=== PATIENT | male | born 1945 | race Caucasian/White ===

== ENCOUNTER 2021-10-06 05:22 | Inpatient (IN) | payer MEDICARE, OTHER ==
[2021-10-06] MEDS ORDERED: Acetaminophen 500 MG TAB ONE (06:22)
[2021-10-06] MEDS ORDERED: hydrOXYzine 25 MG TAB ONE (06:22)
[2021-10-06 06:35] LABS: #Basophils 0.1 thou/uL (0.0-0.2); #Lymphocytes 1.3 thou/uL (1.20-3.40); #Monocytes 0.7 thou/uL (0.11-0.59); #Neutrophils 5.9 thou/uL (1.40-6.50); %Basophils 0.9 % (0.0-1.0); %Eosinophils 0.5 % (0.0-10.0); %Neutrophils 73.7 % (42.0-75.0); Hemoglobin 13.9 g/dL (14.0-18.0); Mean Corpuscular HGB CONC 33.4 g/dL (32.0-36.0); Mean Corpuscular Hemoglobin 32.4 pg (27.0-31.0); Mean Corpuscular Volume 96.8 fL (78.0-98.0); Mean Platelet Volume 6.7 fL (7.4-10.4); Platelet Count 270 thou/uL (130-400); RBC Distribution Width 11.1 % (11.5-14.5)
[2021-10-06 06:55] LABS: ALT (SGPT) 9 U/L (8-55); AST (SGOT) 16 U/L (5-34); Albumin 4.4 g/dL (3.4-4.8); Alkaline Phosphatase 63 U/L (40-110); Anion Gap 12 mmol/L (10-20); BUN (Urea Nitrogen) 11 mg/dL (8.4-25.7); Bilirubin, Total 0.9 mg/dL (0.2-1.2); Calc. Creatinine Clearance 0 mL/min (70-130); Calcium 9.4 mg/dL (7.8-10.44); Carbon Dioxide 24 mmol/L (23-31); Chloride 96 mmol/L (98-107); Globulin 2.4 g/dL (2.4-3.5); Glucose 93 mg/dL (83-110); Potassium 4.3 mmol/L (3.5-5.1); Protein, Total 6.8 g/dL (5.8-8.1); Sodium 128 mmol/L (136-145)
[2021-10-06 07:11] LABS: Bilirubin Negative (Negative); Blood, Urine Negative (Negative); Clarity Clear (Clear); Glucose, Urine (Dipstick) Normal (Negative); Ketone, Urine Negative (Negative); Leukocyte Negative Leu/uL (Negative); Nitrite Negative (Negative); Protein, Urine (Dipstick) Negative (Neg-Trace); Specific Gravity, Urine 1.013 (1.002-1.036); Urobilinogen Normal mg/dL (Less than 2); pH, Urine 6.5 (5.0-9.0)
[2021-10-06] MEDS ORDERED: Ketorolac Tromethamine 30 MG/ML VIAL ONE (07:30)
[2021-10-06] MEDS ORDERED: Ondansetron PF 4 MG/2 ML Vial IVP PRN (10:23)
[2021-10-06] MEDS ORDERED: Lactated Ringer's 1,000 ML IV SCH (10:30)
[2021-10-06] MEDS ORDERED: Enoxaparin Sodium 40 MG/0.4 ML SYRINGE SC SCH (10:30)
[2021-10-06] MEDS: Ketorolac Tromethamine 30 MG/ML VIAL IVP PRN ×2 (11:37→17:14)
[2021-10-06 11:52] VITALS: BMI 24.0
[2021-10-06 12:20] LABS: Magnesium 2.1 mg/dL (1.6-2.6); Phosphorus 3.7 mg/dL (2.3-4.7)
[2021-10-06] MEDS: Carbidopa/Levodopa 25-100 mg Tablet PO SCH ×2 (15:19→20:24)
[2021-10-06] MEDS: Glycopyrrolate 1 MG TAB PO SCH ×2 (17:14→20:24)
[2021-10-06 18:46] LABS: SARS-CoV-2 PCR by NAA Not Detected (NotDetected)
[2021-10-06] MEDS: busPIRone HCl 10 MG TAB PO SCH (20:23)
[2021-10-06] MEDS: hydrOXYzine 25 MG TAB PO SCH (20:24)
[2021-10-06] MEDS ORDERED: Simethicone Chewable 80 MG TAB PO SCH (23:15)
[2021-10-07 05:24] LABS: #Basophils 0.1 thou/uL (0.0-0.2); #Eosinphils 0.2 thou/uL (0.0-0.7); #Lymphocytes 1.8 thou/uL (1.20-3.40); #Monocytes 0.7 thou/uL (0.11-0.59); #Neutrophils 4.6 thou/uL (1.40-6.50); %Basophils 0.8 % (0.0-1.0); %Eosinophils 2.1 % (0.0-10.0); %Lymphocytes 24.3 % (21.0-51.0); %Monocytes 9.2 % (0.0-10.0); %Neutrophils 63.6 % (42.0-75.0); Mean Corpuscular HGB CONC 34.8 g/dL (32.0-36.0); Mean Corpuscular Hemoglobin 33.4 pg (27.0-31.0); Mean Platelet Volume 7.4 fL (7.4-10.4); Platelet Count 202 thou/uL (130-400); RBC Distribution Width 10.9 % (11.5-14.5); White Blood Cell (WBC) Count 7.2 thou/uL (4.8-10.8)
[2021-10-07 05:46] LABS: Anion Gap 6 mmol/L (10-20); BUN (Urea Nitrogen) 14 mg/dL (8.4-25.7); Calc. Creatinine Clearance 81 mL/min (70-130); Carbon Dioxide 30 mmol/L (23-31); Chloride 94 mmol/L (98-107); Glucose 80 mg/dL (83-110); Sodium 126 mmol/L (136-145)
[2021-10-07] MEDS: busPIRone HCl 10 MG TAB PO SCH ×3 (09:28→20:15)
[2021-10-07] MEDS: Enoxaparin Sodium 40 MG/0.4 ML SYRINGE SC SCH (09:29)
[2021-10-07] MEDS: Glycopyrrolate 1 MG TAB PO SCH ×3 (09:29→20:15)
[2021-10-07] MEDS: Carbidopa/Levodopa 25-100 mg Tablet PO SCH ×3 (09:29→20:15)
[2021-10-07] MEDS: Sodium Chloride 0.9% 1,000 ML IV SCH (16:19)
[2021-10-07] MEDS: hydrOXYzine 25 MG TAB PO SCH (20:15)
[2021-10-08] MEDS: Ketorolac Tromethamine 30 MG/ML VIAL IVP PRN (00:33)
[2021-10-08] MEDS: Sodium Chloride 0.9% 1,000 ML IV SCH (00:33)
[2021-10-08] MEDS: Acetaminophen 325 MG TAB PO PRN (02:55)
[2021-10-08] MEDS ORDERED: Morphine 4 MG/ML VIAL SLOW IVP PRN (05:09)
[2021-10-08] MEDS: Enoxaparin Sodium 40 MG/0.4 ML SYRINGE SC SCH (08:26)
[2021-10-08] MEDS: Carbidopa/Levodopa 25-100 mg Tablet PO SCH ×3 (08:27→20:39)
[2021-10-08] MEDS: Glycopyrrolate 1 MG TAB PO SCH ×3 (08:27→20:39)
[2021-10-08] MEDS: busPIRone HCl 10 MG TAB PO SCH ×3 (08:27→20:38)
[2021-10-08 10:25] LABS: Anion Gap 11 mmol/L (10-20); BUN (Urea Nitrogen) 19 mg/dL (8.4-25.7); Calc. Creatinine Clearance 58 mL/min (70-130); Calcium 8.3 mg/dL (7.8-10.44); Carbon Dioxide 20 mmol/L (23-31); Chloride 97 mmol/L (98-107); Glucose 90 mg/dL (83-110); Potassium 4.4 mmol/L (3.5-5.1); Sodium 124 mmol/L (136-145)
[2021-10-08] MEDS ORDERED: Gabapentin 100 MG CAP PO PRN (11:01)
[2021-10-08] MEDS ORDERED: Pregabalin 75 MG CAP PO SCH ×2 (11:05→12:00)
[2021-10-08] MEDS: Pregabalin 75 MG CAP PO SCH (20:38)
[2021-10-08] MEDS: Trospium 20 MG TAB PO SCH (20:39)
[2021-10-08] MEDS: hydrOXYzine 25 MG TAB PO SCH (20:39)
[2021-10-09 06:58] LABS: ALT (SGPT) 9 U/L (8-55); AST (SGOT) 18 U/L (5-34); Albumin 3.4 g/dL (3.4-4.8); Alkaline Phosphatase 48 U/L (40-110); Anion Gap 11 mmol/L (10-20); BUN (Urea Nitrogen) 15 mg/dL (8.4-25.7); Bilirubin, Total 0.8 mg/dL (0.2-1.2); Calc. Creatinine Clearance 62 mL/min (70-130); Calcium 8.5 mg/dL (7.8-10.44); Carbon Dioxide 25 mmol/L (23-31); Chloride 96 mmol/L (98-107); Globulin 1.9 g/dL (2.4-3.5); Glucose 88 mg/dL (83-110); Potassium 4.2 mmol/L (3.5-5.1); Protein, Total 5.3 g/dL (5.8-8.1); Sodium 128 mmol/L (136-145)
[2021-10-09] MEDS: Enoxaparin Sodium 40 MG/0.4 ML SYRINGE SC SCH (08:29)
[2021-10-09] MEDS: Pregabalin 75 MG CAP PO SCH (08:29)
[2021-10-09] MEDS: busPIRone HCl 10 MG TAB PO SCH ×3 (08:33→21:44)
[2021-10-09] MEDS: Glycopyrrolate 1 MG TAB PO SCH ×3 (08:33→21:44)
[2021-10-09] MEDS: Trospium 20 MG TAB PO SCH (08:33)
[2021-10-09] MEDS: Carbidopa/Levodopa 25-100 mg Tablet PO SCH ×3 (08:33→21:44)
[2021-10-09] MEDS: hydrOXYzine 25 MG TAB PO SCH (21:44)
[2021-10-09] MEDS: Acetaminophen 325 MG TAB PO PRN (23:20)
[2021-10-10] MEDS: Ketorolac Tromethamine 30 MG/ML VIAL IVP PRN (04:22)
[2021-10-10] MEDS: Carbidopa/Levodopa 25-100 mg Tablet PO SCH ×3 (08:38→20:26)
[2021-10-10] MEDS: Enoxaparin Sodium 40 MG/0.4 ML SYRINGE SC SCH (08:38)
[2021-10-10] MEDS: busPIRone HCl 10 MG TAB PO SCH ×3 (08:38→20:26)
[2021-10-10] MEDS: Glycopyrrolate 1 MG TAB PO SCH ×3 (08:39→20:26)
[2021-10-10 09:10] LABS: Sodium 129 mmol/L (136-145)
[2021-10-10] MEDS ORDERED: Pregabalin 25 MG CAP PO SCH (12:15)
[2021-10-10] MEDS: Polyethylene Glycol 3350 17 GM Packet PO PRN (13:07)
[2021-10-10] MEDS: hydrOXYzine 25 MG TAB PO SCH (20:26)
[2021-10-11] MEDS: Ketorolac Tromethamine 30 MG/ML VIAL IVP PRN (00:49)
[2021-10-11] MEDS: Enoxaparin Sodium 40 MG/0.4 ML SYRINGE SC SCH (08:28)
[2021-10-11] MEDS: busPIRone HCl 10 MG TAB PO SCH ×3 (08:29→20:41)
[2021-10-11] MEDS: Carbidopa/Levodopa 25-100 mg Tablet PO SCH ×3 (08:30→20:42)
[2021-10-11] MEDS: Glycopyrrolate 1 MG TAB PO SCH ×3 (08:31→20:43)
[2021-10-11] MEDS ORDERED: hydrOXYzine 10 MG/5 ML UDCUP PO SCH (09:00)
[2021-10-11] MEDS: Polyethylene Glycol 3350 17 GM Packet PO PRN (12:00)
[2021-10-11 12:07] LABS: Sodium 129 mmol/L (136-145)
[2021-10-11] MEDS ORDERED: Senokot S 8.6-50 MG TAB PO SCH (12:30)
[2021-10-11] MEDS ORDERED: Bisacodyl 10 MG SUPP PR PRN (12:39)
[2021-10-11 12:59] LABS: Anion Gap 12 mmol/L (10-20); BUN (Urea Nitrogen) 12 mg/dL (8.4-25.7); Calc. Creatinine Clearance 85 mL/min (70-130); Calcium 8.9 mg/dL (7.8-10.44); Carbon Dioxide 27 mmol/L (23-31); Chloride 95 mmol/L (98-107); Glucose 94 mg/dL (83-110); Potassium 4.2 mmol/L (3.5-5.1); Sodium 130 mmol/L (136-145)
[2021-10-11] MEDS: Bisacodyl 5 MG TAB PO PRN (14:14)
[2021-10-11] MEDS: hydrOXYzine 25 MG TAB PO SCH (20:43)
[2021-10-11] MEDS: Senokot S 8.6-50 MG TAB PO SCH (20:44)
[2021-10-11] MEDS: Sodium Chloride 1 GM TAB PO SCH (20:44)
[2021-10-11] MEDS: Acetaminophen 325 MG TAB PO PRN (20:44)
[2021-10-11] MEDS: Pregabalin 25 MG CAP PO SCH (22:45)
[2021-10-11] MEDS ORDERED: Pregabalin 25 MG CAP PO SCH (22:45)
[2021-10-12] MEDS: Acetaminophen 325 MG TAB PO PRN (05:02)
[2021-10-12 06:27] LABS: Anion Gap 6 mmol/L (10-20); BUN (Urea Nitrogen) 13 mg/dL (8.4-25.7); Calc. Creatinine Clearance 78 mL/min (70-130); Calcium 8.7 mg/dL (7.8-10.44); Carbon Dioxide 30 mmol/L (23-31); Chloride 95 mmol/L (98-107); Glucose 85 mg/dL (83-110); Potassium 4.2 mmol/L (3.5-5.1); Sodium 127 mmol/L (136-145); Uric Acid 3.4 mg/dL (3.5-7.2)
[2021-10-12] MEDS: Enoxaparin Sodium 40 MG/0.4 ML SYRINGE SC SCH (08:05)
[2021-10-12] MEDS: Carbidopa/Levodopa 25-100 mg Tablet PO SCH ×3 (08:05→20:19)
[2021-10-12] MEDS: Pregabalin 25 MG CAP PO SCH (08:05)
[2021-10-12] MEDS: busPIRone HCl 10 MG TAB PO SCH ×3 (08:06→20:18)
[2021-10-12] MEDS: Sodium Chloride 1 GM TAB PO SCH ×3 (08:06→20:23)
[2021-10-12] MEDS: Senokot S 8.6-50 MG TAB PO SCH ×2 (08:07→20:21)
[2021-10-12] MEDS: Glycopyrrolate 1 MG TAB PO SCH ×3 (08:07→20:21)
[2021-10-12] MEDS ORDERED: Sodium Chloride 3% 500 ML IVPB SCH (09:15)
[2021-10-12] MEDS ORDERED: STERILE WATER IV SCH (10:00)
[2021-10-12] MEDS ORDERED: SODIUM CHLORIDE IV SCH (10:00)
[2021-10-12 15:05] LABS: Anion Gap 15 mmol/L (10-20); BUN (Urea Nitrogen) 13 mg/dL (8.4-25.7); Calc. Creatinine Clearance 84 mL/min (70-130); Calcium 8.7 mg/dL (7.8-10.44); Carbon Dioxide 21 mmol/L (23-31); Chloride 94 mmol/L (98-107); Glucose 95 mg/dL (83-110); Potassium 3.9 mmol/L (3.5-5.1); Sodium 126 mmol/L (136-145)
[2021-10-12] MEDS: STERILE WATER IV SCH (18:18)
[2021-10-12] MEDS: SODIUM CHLORIDE IV SCH (18:18)
[2021-10-12] MEDS: hydrOXYzine 25 MG TAB PO SCH (20:19)
[2021-10-12] MEDS: Pregabalin 50 MG CAP PO SCH (20:20)
[2021-10-12 21:19] LABS: Anion Gap 17 mmol/L (10-20); BUN (Urea Nitrogen) 13 mg/dL (8.4-25.7); Calc. Creatinine Clearance 87 mL/min (70-130); Calcium 8.6 mg/dL (7.8-10.44); Carbon Dioxide 19 mmol/L (23-31); Chloride 96 mmol/L (98-107); Glucose 103 mg/dL (83-110); Potassium 3.9 mmol/L (3.5-5.1); Sodium 128 mmol/L (136-145)
[2021-10-13 06:45] LABS: Anion Gap 12 mmol/L (10-20); BUN (Urea Nitrogen) 12 mg/dL (8.4-25.7); Calc. Creatinine Clearance 87 mL/min (70-130); Calcium 8.8 mg/dL (7.8-10.44); Carbon Dioxide 24 mmol/L (23-31); Chloride 98 mmol/L (98-107); Glucose 81 mg/dL (83-110); Potassium 4.5 mmol/L (3.5-5.1); Sodium 129 mmol/L (136-145)
[2021-10-13 07:46] LABS: Anion Gap 12 mmol/L (10-20); BUN (Urea Nitrogen) 12 mg/dL (8.4-25.7); Calc. Creatinine Clearance 87 mL/min (70-130); Carbon Dioxide 23 mmol/L (23-31); Chloride 98 mmol/L (98-107); Glucose 82 mg/dL (83-110); Potassium 4.2 mmol/L (3.5-5.1); Sodium 129 mmol/L (136-145)
[2021-10-13 07:48] LABS: #Basophils 0.1 thou/uL (0.0-0.2); #Eosinphils 0.3 thou/uL (0.0-0.7); #Lymphocytes 1.3 thou/uL (1.20-3.40); #Monocytes 0.7 thou/uL (0.11-0.59); %Basophils 0.8 % (0.0-1.0); %Eosinophils 3.6 % (0.0-10.0); %Lymphocytes 18.2 % (21.0-51.0); %Monocytes 9.5 % (0.0-10.0); %Neutrophils 67.9 % (42.0-75.0); Hemoglobin 13.7 g/dL (14.0-18.0); Mean Corpuscular HGB CONC 32.3 g/dL (32.0-36.0); Mean Corpuscular Hemoglobin 31.8 pg (27.0-31.0); Mean Corpuscular Volume 98.4 fL (78.0-98.0); Mean Platelet Volume 7.3 fL (7.4-10.4); Platelet Count 236 thou/uL (130-400); White Blood Cell (WBC) Count 7.4 thou/uL (4.8-10.8)
[2021-10-13] MEDS ORDERED: Pregabalin 25 MG CAP PO SCH (09:00)
[2021-10-13] MEDS: Carbidopa/Levodopa 25-100 mg Tablet PO SCH ×3 (09:31→20:25)
[2021-10-13] MEDS: Glycopyrrolate 1 MG TAB PO SCH ×3 (09:31→20:25)
[2021-10-13] MEDS: Senokot S 8.6-50 MG TAB PO SCH ×2 (09:31→20:27)
[2021-10-13] MEDS: busPIRone HCl 10 MG TAB PO SCH ×3 (09:32→20:24)
[2021-10-13] MEDS: Enoxaparin Sodium 40 MG/0.4 ML SYRINGE SC SCH (09:33)
[2021-10-13] MEDS: Sodium Chloride 1 GM TAB PO SCH ×3 (09:33→20:25)
[2021-10-13 10:45] LABS: SARS-CoV-2 PCR by NAA Not Detected (NotDetected)
[2021-10-13 12:07] LABS: Anion Gap 11 mmol/L (10-20); BUN (Urea Nitrogen) 12 mg/dL (8.4-25.7); Calc. Creatinine Clearance 86 mL/min (70-130); Calcium 8.5 mg/dL (7.8-10.44); Carbon Dioxide 23 mmol/L (23-31); Chloride 98 mmol/L (98-107); Glucose 87 mg/dL (83-110); Potassium 3.9 mmol/L (3.5-5.1); Sodium 128 mmol/L (136-145)
[2021-10-13] MEDS: SODIUM CHLORIDE IV SCH ×2 (15:46→18:34)
[2021-10-13] MEDS: STERILE WATER IV SCH ×2 (15:46→18:34)
[2021-10-13] MEDS: Acetaminophen 325 MG TAB PO PRN (15:49)
[2021-10-13] MEDS: Pregabalin 50 MG CAP PO SCH (20:24)
[2021-10-13] MEDS: hydrOXYzine 25 MG TAB PO SCH (20:25)
[2021-10-13 20:52] LABS: Anion Gap 11 mmol/L (10-20); BUN (Urea Nitrogen) 14 mg/dL (8.4-25.7); Calc. Creatinine Clearance 87 mL/min (70-130); Calcium 8.6 mg/dL (7.8-10.44); Carbon Dioxide 25 mmol/L (23-31); Chloride 97 mmol/L (98-107); Glucose 97 mg/dL (83-110); Potassium 4.1 mmol/L (3.5-5.1); Sodium 129 mmol/L (136-145)
[2021-10-14] MEDS: Acetaminophen 325 MG TAB PO PRN (04:37)
[2021-10-14 05:42] LABS: #Eosinphils 0.2 thou/uL (0.0-0.7); #Lymphocytes 1.5 thou/uL (1.20-3.40); #Monocytes 0.6 thou/uL (0.11-0.59); #Neutrophils 3.6 thou/uL (1.40-6.50); %Basophils 0.7 % (0.0-1.0); %Eosinophils 3.6 % (0.0-10.0); %Lymphocytes 25.2 % (21.0-51.0); %Monocytes 9.6 % (0.0-10.0); %Neutrophils 60.9 % (42.0-75.0); Hemoglobin 12.7 g/dL (14.0-18.0); Mean Corpuscular HGB CONC 33.9 g/dL (32.0-36.0); Mean Corpuscular Hemoglobin 33.1 pg (27.0-31.0); Mean Corpuscular Volume 97.6 fL (78.0-98.0); Mean Platelet Volume 6.6 fL (7.4-10.4); Platelet Count 235 thou/uL (130-400); RBC Distribution Width 10.9 % (11.5-14.5); Red Blood Cell (RBC) Count 3.84 mill/uL (4.70-6.10); White Blood Cell (WBC) Count 5.9 thou/uL (4.8-10.8)
[2021-10-14 06:08] LABS: ALT (SGPT) Less than 7 U/L (8-55); AST (SGOT) 16 U/L (5-34); Albumin 3.4 g/dL (3.4-4.8); Alkaline Phosphatase 60 U/L (40-110); Anion Gap 10 mmol/L (10-20); BUN (Urea Nitrogen) 13 mg/dL (8.4-25.7); Bilirubin, Total 0.7 mg/dL (0.2-1.2); Calc. Creatinine Clearance 88 mL/min (70-130); Calcium 8.6 mg/dL (7.8-10.44); Carbon Dioxide 25 mmol/L (23-31); Chloride 98 mmol/L (98-107); Globulin 2.2 g/dL (2.4-3.5); Glucose 86 mg/dL (83-110); Potassium 3.8 mmol/L (3.5-5.1); Protein, Total 5.6 g/dL (5.8-8.1); Sodium 129 mmol/L (136-145)
[2021-10-14] MEDS ORDERED: Pregabalin 25 MG CAP PO SCH ×2 (06:30→11:30)
[2021-10-14] MEDS: Carbidopa/Levodopa 25-100 mg Tablet PO SCH ×3 (08:25→21:13)
[2021-10-14] MEDS: busPIRone HCl 10 MG TAB PO SCH ×3 (08:25→21:14)
[2021-10-14] MEDS: Enoxaparin Sodium 40 MG/0.4 ML SYRINGE SC SCH (08:26)
[2021-10-14] MEDS: Sodium Chloride 1 GM TAB PO SCH ×3 (08:26→21:14)
[2021-10-14] MEDS: Senokot S 8.6-50 MG TAB PO SCH ×2 (08:26→21:14)
[2021-10-14] MEDS: Glycopyrrolate 1 MG TAB PO SCH ×3 (08:27→21:13)
[2021-10-14] MEDS: SODIUM CHLORIDE IV SCH ×2 (10:18→12:13)
[2021-10-14] MEDS: STERILE WATER IV SCH ×2 (10:18→12:13)
[2021-10-14] MEDS: Bisacodyl 5 MG TAB PO PRN (15:38)
[2021-10-14 16:56] LABS: Anion Gap 7 mmol/L (10-20); BUN (Urea Nitrogen) 15 mg/dL (8.4-25.7); Calc. Creatinine Clearance 91 mL/min (70-130); Calcium 8.4 mg/dL (7.8-10.44); Carbon Dioxide 26 mmol/L (23-31); Chloride 100 mmol/L (98-107); Glucose 101 mg/dL (83-110); Potassium 3.9 mmol/L (3.5-5.1); Sodium 129 mmol/L (136-145)
[2021-10-14] MEDS: hydrOXYzine 25 MG TAB PO SCH (21:14)
[2021-10-14] MEDS: Pregabalin 75 MG CAP PO SCH (21:15)
[2021-10-15] MEDS: SODIUM CHLORIDE IV SCH ×2 (04:56→22:04)
[2021-10-15] MEDS: STERILE WATER IV SCH ×2 (04:56→22:04)
[2021-10-15 06:16] LABS: Anion Gap 12 mmol/L (10-20); BUN (Urea Nitrogen) 12 mg/dL (8.4-25.7); Calc. Creatinine Clearance 94 mL/min (70-130); Calcium 8.2 mg/dL (7.8-10.44); Carbon Dioxide 21 mmol/L (23-31); Chloride 102 mmol/L (98-107); Glucose 85 mg/dL (83-110); Sodium 131 mmol/L (136-145)
[2021-10-15] MEDS: busPIRone HCl 10 MG TAB PO SCH ×3 (08:49→22:02)
[2021-10-15] MEDS: Senokot S 8.6-50 MG TAB PO SCH ×2 (08:49→22:03)
[2021-10-15] MEDS: Enoxaparin Sodium 40 MG/0.4 ML SYRINGE SC SCH (08:53)
[2021-10-15] MEDS: Sodium Chloride 1 GM TAB PO SCH ×3 (08:53→22:03)
[2021-10-15] MEDS: Glycopyrrolate 1 MG TAB PO SCH ×3 (08:53→22:03)
[2021-10-15] MEDS: Carbidopa/Levodopa 25-100 mg Tablet PO SCH ×3 (08:53→22:03)
[2021-10-15 19:42] LABS: Anion Gap 9 mmol/L (10-20); BUN (Urea Nitrogen) 11 mg/dL (8.4-25.7); Calc. Creatinine Clearance 88 mL/min (70-130); Calcium 8.3 mg/dL (7.8-10.44); Carbon Dioxide 27 mmol/L (23-31); Chloride 100 mmol/L (98-107); Glucose 111 mg/dL (83-110); Potassium 3.4 mmol/L (3.5-5.1); Sodium 133 mmol/L (136-145)
[2021-10-15] MEDS: hydrOXYzine 25 MG TAB PO SCH (22:02)
[2021-10-15] MEDS: Pregabalin 75 MG CAP PO SCH (22:04)
[2021-10-16] MEDS: Acetaminophen 325 MG TAB PO PRN ×2 (02:45→20:49)
[2021-10-16 06:03] LABS: Hemoglobin 11.9 g/dL (14.0-18.0); Mean Corpuscular HGB CONC 33.4 g/dL (32.0-36.0); Mean Corpuscular Hemoglobin 32.5 pg (27.0-31.0); Mean Corpuscular Volume 97.5 fL (78.0-98.0); Mean Platelet Volume 6.4 fL (7.4-10.4); Platelet Count 251 thou/uL (130-400); Red Blood Cell (RBC) Count 3.67 mill/uL (4.70-6.10); White Blood Cell (WBC) Count 5.9 thou/uL (4.8-10.8)
[2021-10-16 06:19] LABS: Anion Gap 9 mmol/L (10-20); BUN (Urea Nitrogen) 10 mg/dL (8.4-25.7); Calc. Creatinine Clearance 94 mL/min (70-130); Calcium 8.4 mg/dL (7.8-10.44); Carbon Dioxide 25 mmol/L (23-31); Chloride 104 mmol/L (98-107); Glucose 86 mg/dL (83-110); Sodium 134 mmol/L (136-145)
[2021-10-16] MEDS: Sodium Chloride 1 GM TAB PO SCH ×3 (08:11→20:50)
[2021-10-16] MEDS: Senokot S 8.6-50 MG TAB PO SCH (08:11)
[2021-10-16] MEDS: Carbidopa/Levodopa 25-100 mg Tablet PO SCH ×3 (08:11→20:50)
[2021-10-16] MEDS: busPIRone HCl 10 MG TAB PO SCH ×3 (08:11→20:49)
[2021-10-16] MEDS: Enoxaparin Sodium 40 MG/0.4 ML SYRINGE SC SCH (08:12)
[2021-10-16] MEDS: Glycopyrrolate 1 MG TAB PO SCH ×3 (09:45→20:49)
[2021-10-16] MEDS ORDERED: Senokot S 8.6-50 MG TAB PO PRN (11:06)
[2021-10-16] MEDS: SODIUM CHLORIDE IV SCH (18:45)
[2021-10-16] MEDS: STERILE WATER IV SCH (18:45)
[2021-10-16] MEDS: Pregabalin 75 MG CAP PO SCH (20:50)
[2021-10-16] MEDS: hydrOXYzine 25 MG TAB PO SCH (20:50)
[2021-10-17] MEDS: Acetaminophen 325 MG TAB PO PRN ×4 (01:39→20:37)
[2021-10-17 07:59] LABS: #Eosinphils 0.3 thou/uL (0.0-0.7); #Lymphocytes 1.7 thou/uL (1.20-3.40); #Monocytes 0.5 thou/uL (0.11-0.59); #Neutrophils 2.8 thou/uL (1.40-6.50); %Basophils 0.6 % (0.0-1.0); %Eosinophils 4.8 % (0.0-10.0); %Lymphocytes 31.7 % (21.0-51.0); %Monocytes 9.8 % (0.0-10.0); %Neutrophils 53.2 % (42.0-75.0); Hemoglobin 12.4 g/dL (14.0-18.0); Mean Corpuscular Volume 96.9 fL (78.0-98.0); Mean Platelet Volume 6.7 fL (7.4-10.4); Platelet Count 254 thou/uL (130-400); Red Blood Cell (RBC) Count 3.89 mill/uL (4.70-6.10); White Blood Cell (WBC) Count 5.3 thou/uL (4.8-10.8)
[2021-10-17 08:26] LABS: Anion Gap 11 mmol/L (10-20); BUN (Urea Nitrogen) 9 mg/dL (8.4-25.7); Calc. Creatinine Clearance 94 mL/min (70-130); Calcium 8.4 mg/dL (7.8-10.44); Carbon Dioxide 24 mmol/L (23-31); Chloride 101 mmol/L (98-107); Glucose 86 mg/dL (83-110); Potassium 3.7 mmol/L (3.5-5.1); Sodium 132 mmol/L (136-145)
[2021-10-17] MEDS: Carbidopa/Levodopa 25-100 mg Tablet PO SCH ×3 (08:28→20:25)
[2021-10-17] MEDS: busPIRone HCl 10 MG TAB PO SCH ×3 (08:28→20:24)
[2021-10-17] MEDS: Enoxaparin Sodium 40 MG/0.4 ML SYRINGE SC SCH (08:29)
[2021-10-17] MEDS: Sodium Chloride 1 GM TAB PO SCH ×3 (08:29→20:24)
[2021-10-17] MEDS: Glycopyrrolate 1 MG TAB PO SCH ×3 (10:14→20:21)
[2021-10-17] MEDS: SODIUM CHLORIDE IV SCH ×2 (13:08→18:11)
[2021-10-17] MEDS: STERILE WATER IV SCH ×2 (13:08→18:11)
[2021-10-17 15:41] LABS: Anion Gap 10 mmol/L (10-20); BUN (Urea Nitrogen) 10 mg/dL (8.4-25.7); Calc. Creatinine Clearance 89 mL/min (70-130); Calcium 8.4 mg/dL (7.8-10.44); Carbon Dioxide 26 mmol/L (23-31); Chloride 101 mmol/L (98-107); Glucose 110 mg/dL (83-110); Potassium 3.4 mmol/L (3.5-5.1); Sodium 134 mmol/L (136-145)
[2021-10-17] MEDS ORDERED: Electrolyte Replacement Protocol 1 EACH FS SCH (18:30)
[2021-10-17] MEDS ORDERED: Potassium Chloride 20 MEQ TAB PO SCH (18:30)
[2021-10-17] MEDS: Pregabalin 75 MG CAP PO SCH (20:21)
[2021-10-17] MEDS: hydrOXYzine 25 MG TAB PO SCH (20:24)
[2021-10-18] MEDS: Acetaminophen 325 MG TAB PO PRN ×3 (01:47→14:09)
[2021-10-18] MEDS ORDERED: HYDROcodone/Acetaminophen 5/325 mg Tablet PO SCH (05:15)
[2021-10-18] MEDS: STERILE WATER IV SCH (05:38)
[2021-10-18] MEDS: SODIUM CHLORIDE IV SCH (05:38)
[2021-10-18 06:58] LABS: Anion Gap 12 mmol/L (10-20); BUN (Urea Nitrogen) 10 mg/dL (8.4-25.7); Calc. Creatinine Clearance 94 mL/min (70-130); Calcium 8.4 mg/dL (7.8-10.44); Carbon Dioxide 25 mmol/L (23-31); Chloride 102 mmol/L (98-107); Glucose 84 mg/dL (83-110); Potassium 3.9 mmol/L (3.5-5.1); Sodium 135 mmol/L (136-145)
[2021-10-18] MEDS: Glycopyrrolate 1 MG TAB PO SCH ×2 (08:29→14:09)
[2021-10-18] MEDS: Enoxaparin Sodium 40 MG/0.4 ML SYRINGE SC SCH (08:29)
[2021-10-18] MEDS: Carbidopa/Levodopa 25-100 mg Tablet PO SCH ×2 (08:30→14:09)
[2021-10-18] MEDS: Sodium Chloride 1 GM TAB PO SCH ×2 (08:30→14:09)
[2021-10-18] MEDS: busPIRone HCl 10 MG TAB PO SCH ×2 (08:32→14:09)
[2021-10-18 09:16] VITALS: BP 162/77; TEMP 97.5
[2021-10-18] MEDS ORDERED: Pregabalin 25 MG CAP PO SCH (11:15)
[2021-10-19] MEDS ORDERED: Pregabalin 25 MG CAP PO SCH (09:00)
== END 2021-10-18 14:56 | DRG 644 ==
LOC: ERS 05:22 → T4-B 10:23
PROVIDERS: ADMIT Internal Medicine; ATTEND Internal Medicine
DX: E22.2 Syndrome of inappropriate secretion of antidiuretic hormone (principal); N13.30 Unspecified hydronephrosis; N13.8 Other obstructive and reflux uropathy; Z20.822 Contact with and (suspected) exposure to COVID-19; G20 Parkinson's disease; G62.9 Polyneuropathy, unspecified; R32 Unspecified urinary incontinence; R53.1 Weakness; N40.1 Benign prostatic hyperplasia with lower urinary tract symptoms; Z51.5 Encounter for palliative care; Z66 Do not resuscitate; F41.9 Anxiety disorder, unspecified; F32.A Depression, unspecified; G47.00 Insomnia, unspecified; R33.8 Other retention of urine; G89.4 Chronic pain syndrome; D64.9 Anemia, unspecified; N32.81 Overactive bladder; Z90.49 Acquired absence of other specified parts of digestive tract; Z88.8 Allergy status to other drugs, medicaments and biological substances; Z98.49 Cataract extraction status, unspecified eye; Z90.79 Acquired absence of other genital organ(s); Z85.46 Personal history of malignant neoplasm of prostate; Z87.11 Personal history of peptic ulcer disease
CPT/HCPCS: 36415; 36416; 72148; 76770; 80048; 80053; 81003; 82533; 83735; 83930; 83935; 84100; 84295; 84443; 84550; 85025; 85027; 93005; 96374; A4217; J1650; J1885; J2270; J7050; J7120; U0003; U0005